=== PATIENT | female | born 1990 | race Caucasian/White ===

== ENCOUNTER 2017-06-20 18:32 | Emergency (ER) | payer OTHER ==
--- NOTE | 2017-06-20 19:40 | EDM.PDOC ---
ED HPI GENERAL MEDICAL PROBLEM - General Chief Complaint: Chest Pain Stated Complaint: chest pressure Time Seen by Provider: 06/20/17 19:15 Source of Information: Reports: Patient History Limitations: Reports: No Limitations - History of Present Illness INITIAL COMMENTS - FREE TEXT/NARRATIVE: The patient states that she has had a dry cough since the weekend of June 10 and . She states that this past 06/17/2017, she felt her heart racing while being excited at a basketball game. After the game, her symptoms resolved. She states that she felt fine on 06/18/2017, but then yesterday , 06/19/2017, she felt left chest tightness and pressure, dyspnea, and lightheadedness waxing and waning over the course of the day. Her symptoms were worse if she coughed, with certain movements, and with walking. Today she had more of the same symptoms. No prior similar symptoms. The patient denies having a recent fever. No nausea, vomiting, constipation, diarrhea, or urinary symptoms. No recent lower extremity swelling. The patient has not taken any home treatments or remedies. Here in the ED, the patient is afebrile, saturating 100% on room air. The patient does not have a PCP. Left Chest Pain Score (Numeric/FACES): 7 - Related Data Allergies Allergy/AdvReac Type Severity Reaction Status Date / Time cefaclor [From Ceclor] Allergy Nausea Verified 06/20/17 18:43 sulfamethoxazole Allergy Rash Verified 06/20/17 18:43 [From Septra] trimethoprim [From Septra] Allergy Rash Verified 06/20/17 18:43 Home Meds: Home Meds . [No Known Home Meds] 06/20/17 [History] Past Medical History Endocrine/Metabolic History: Reports: Obesity/BMI 30+ Social & Family History - Family History Family Medical History: Noncontributory - Tobacco Use Smoking Status *Q: Never Smoker Second Hand Smoke Exposure: No - Caffeine Use Caffeine Use: Reports: Coffee, Tea - Alcohol Use Alcohol Use History: Yes Alcohol Use Frequency: Socially - Recreational Drug Use Recreational Drug Use: No - Living Situation & Occupation Living situation: Reports: Single, Other (with friends) Occupation: Student (Grad student) ED ROS GENERAL - Review of Systems Review Of Systems: ROS reveals no pertinent complaints other than HPI. ED EXAM, GENERAL - Physical Exam Exam: See Below Exam Limited By: No Limitations General Appearance: Alert, WD/WN, No Apparent Distress Eye Exam: Bilateral Eye: Normal Inspection Ears: Normal External Exam, Hearing Grossly Normal Nose: Normal Inspection, No Blood Throat/Mouth: Normal Inspection, Normal Lips, Normal Voice, No Airway Compromise Head: Atraumatic, Normocephalic Neck: Normal Inspection, Full Range of Motion Respiratory/Chest: No Respiratory Distress, Lungs Clear, Normal Breath Sounds, No Accessory Muscle Use, Chest Non-Tender (including to the left chest, however , the pain is reproducible when the patient presses her hands together in front of her chest, flexing the left pectoralis muscle) Cardiovascular: Normal Peripheral Pulses, Regular Rate, Rhythm, No Gallop, No JVD, No Murmur, No Rub Peripheral Pulses: 4+: Radial (L), Radial (R) GI/Abdominal: Normal Bowel Sounds, Soft, Non-Tender, No Organomegaly, No Distention, No Abnormal Bruit, No Mass, Other (Obese) (Female) Exam: Deferred Rectal (Female) Exam: Deferred Back Exam: Normal Inspection, Full Range of Motion, NT Extremities: Normal Inspection, Normal Range of Motion, No Pedal Edema, Normal Capillary Refill Neurological: Alert, Oriented, Normal Cognition, No Motor/Sensory Deficits Psychiatric: Normal Affect Skin Exam: Warm, Dry, Intact, Normal Color, No Rash EKG INTERPRETATION EKG Date: 06/20/17 Time: 20:01 Rhythm: NSR Rate (Beats/Min): 73 [place]: Normal P-Wave: Present QRS: Normal ST-T: Normal QT: Normal Comparison: NA - No Prior EKG Course - Vital Signs Last Recorded V/S: Last Vital Signs Temp 36.8 C 06/20/17 18:38 Pulse 71 06/20/17 18:38 Resp 18 06/20/17 18:38 BP 125/82 06/20/17 18:38 Pulse Ox 100 06/20/17 18:38 - Orders/Labs/Meds Orders: Active Orders 24 hr Category Date Time Status EKG Documentation Completion [RC] STAT Care 06/20/17 19:29 Active Chest 2V [CR] Stat Exams 06/20/17 19:28 Taken Labs: Laboratory Tests 06/20/17 06/20/17 06/20/17 Range/Units 18:55 18:55 18:55 WBC 11.68 H (3.98-10.04) K/mm3 RBC 4.73 (3.98-5.22) M/mm3 Hgb 13.7 (11.2-15.7) gm/L Hct 40.1 (34.1-44.9) % MCV 84.8 (79.4-94.8) fl MCH 29.0 (25.6-32.2) pg MCHC 34.2 (32.2-35.5) g/dl RDW Std Deviation 37.6 (36.4-46.3) fL Plt Count 312 (182-369) K/mm3 MPV 10.3 (9.4-12.3) fl Neutrophils % (Manual) 55 (40-60) % Band Neutrophils % 0 (0-10) % Lymphocytes % (Manual) 40 (20-40) % Atypical Lymphs % 0 % Monocytes % (Manual) 3 (2-10) % Eosinophils % (Manual) 1 (0.7-5.8) % Basophils % (Manual) 1 (0.1-1.2) Platelet Estimate Adequate Plt Morphology Comment Normal RBC Morph Comment Normal PT 10.5 (8.0-13.0) SECONDS INR 0.98 APTT 28 (22-36) SECONDS D-Dimer, Quantitative < 0.19 L (0.19-0.59) mg/L Sodium 139 (136-145) mEq/L Potassium 3.8 (3.5-5.1) mEq/L Chloride 101 (98-107) mEq/L Carbon Dioxide 25 (21-32) mEq/L Anion Gap 16.8 H (5-15) BUN 19 H (7-18) mg/dL Creatinine 1.0 (0.55-1.02) mg/dL Est Cr Clr Drug Dosing 74.91 mL/min Estimated GFR (MDRD) > 60 (>60) mL/min BUN/Creatinine Ratio 19.0 H (14-18) Glucose 91 (74-106) mg/dL Calcium 9.1 (8.5-10.1) mg/dL Total Bilirubin 0.3 (0.2-1.0) mg/dL AST 22 (15-37) U/L ALT 28 (14-59) U/L Alkaline Phosphatase 77 (46-116) U/L Total Protein 7.6 (6.4-8.2) g/dl Albumin 4.0 (3.4-5.0) g/dl Globulin 3.6 gm/dL Albumin/Globulin Ratio 1.1 (1-2) - Re-Assessments/Exams Free Text/Narrative Re-Assessment/Exam: 06/20/17 19:52 Two-view chest radiograph appears to be grossly normal. Cardiac silhouette is within normal limits. No pulmonary vascular congestion. No pleural effusions. No focal infiltrate. No pneumothorax. Formal read per the Radiologist pending. 06/20/17 20:23 Test results discussed with the patient. His workup is unremarkable. The patient 's left-sided chest pain is likely musculoskeletal in etiology, although it is possible that this could be at least some anxiety component. I'm recommending that she take [id number] ibuprofen as needed, but I will also refer her to Dr. Kami Schreiber for follow-up. Departure - Departure Time of Disposition: 20:24 Disposition: Home, Self-Care 01 Condition: Good Clinical Impression: Musculoskeletal chest pain, Anxiety - Discharge Information Referrals: PCP,None [Primary Care Provider] - Kami Schreiber MD [Physician] - Forms: ED Department Discharge Additional Instructions: You were seen in the emergency room for left-sided chest tightness and pressure , shortness of breath, and lightheadedness. Workup in the ER included blood work, an ECG, and a chest x-ray. Your entire workup was unremarkable. You do not have pneumonia. You do not have a blood clot in your lungs. No abnormal rhythms were found. Because your pain was reproducible with flexing your left pectoralis muscle, your chest pain is MOST LIKELY due to muscle strain, however, there may also be an anxiety component. We recommend that you take [id number] ibuprofen as needed for discomfort. If your symptoms persist, please follow-up with Dr. Kami Schreiber in the clinic. If any other problems, please do not hesitate to return to the ER. - My Orders Last 24 Hours: My Active Orders 06/20/17 19:28 Chest 2V [CR] Stat 06/20/17 19:29 EKG Documentation Completion [RC] STAT - Assessment/Plan Last 24 Hours: My Active Orders 06/20/17 19:28 Chest 2V [CR] Stat 06/20/17 19:29 EKG Documentation Completion [RC] STAT
--- NOTE | 2017-06-21 08:46 | CR ---
Chest: Two views of the chest were obtained. Comparison: No prior chest x-ray. Heart size and mediastinum are normal. Lungs are clear. Bony structures are within normal limits. Impression: 1. Nothing acute is identified on two-view chest x-ray. Diagnostic code #1
== END 2017-06-20 20:30 | disposition home or self-care (01) ==
LOC: JD.ED 18:32
DX: R07.89 Other chest pain (principal); F41.9 Anxiety disorder, unspecified; E66.9 Obesity, unspecified; Z88.1 Allergy status to other antibiotic agents; Z88.2 Allergy status to sulfonamides; Z88.8 Allergy status to other drugs, medicaments and biological substances
CPT/HCPCS: 36415; 71046; 71046-26; 80053; 85025; 85379; 85610; 85730; 93005; 93010; 99284-25; 99285-25